=== PATIENT | female | born 1945 | race Caucasian/White ===

== ENCOUNTER 2020-02-13 06:52 | Outpatient (REF) | payer MEDICARE, SELFPAY ==
[2020-02-13 11:08] LABS: MANUAL DIFF FLAG NO
[2020-02-13 11:13] LABS: Basophils Percent Auto 0.6 % (0-2); Eosinophils Absolute Auto 0.1 X10*3/uL (0.0-0.4); Eosinophils Percent Auto 1.8 % (0-4); Hematocrit 41.1 % (37-47); Hemoglobin 13.3 g/dl (12.0-16.0); Imm Gran Abs Auto 0.01 X10*3/uL (0.00-0.03); Imm Gran Pct Auto 0.2 % (0.0-0.4); Lymphocytes Absolute Auto 2.6 X10*3/uL (1.2-4.9); Lymphocytes Percent Auto 42.6 % (20-40); Mean Corpuscular HGB Conc 32.4 g/dl (31.0-35.0); Mean Corpuscular Hemoglobin 31.4 pg (27.0-33.0); Mean Corpuscular Volume 96.9 fL (80-98); Mean Platelet Volume 9.8 fL (9.4-12.3); Monocytes Absolute Auto 0.5 X10*3/uL (0.1-1.2); Monocytes Percent Auto 7.3 % (2-11); Neutrophils Percent Auto 47.5 % (45-73); Platelet Count 358 X10*3/uL (160-400); Red Blood Count 4.24 X10*6/uL (4.20-5.50); Red Cell Distribution Width 13.4 % (11.0-16.0); White Blood Count 6.2 X10*3/uL (4.8-10.8)
[2020-02-13 11:46] LABS: Alanine Aminotransferase 21 U/L (0-31); Albumin Level 4.4 g/dL (3.5-5.0); Alkaline Phosphatase 66 U/L (39-117); Anion Gap 15 (12-20); Aspartate Amino Transferase 20 U/L (5-31); Bilirubin Total 1.4 mg/dL (0.0-1.0); Blood Urea Nitrogen 15 mg/dL (9-16); Calcium 8.9 mg/dL (8.4-10.2); Carbon Dioxide 28 mmol/L (22-29); Chloride 103 mmol/L (96-108); Estimated Glomerular Filt Rate > 60; Glucose Random 84 mg/dL (60-115); Potassium 4.5 mmol/l (3.3-5.1); Sodium 141 mmol/L (135-145); Total Protein 6.9 g/dL (6.5-8.0)
== END 2020-02-13 06:53 | disposition home or self-care (01) ==
LOC: HO.HMGCLDS 06:52
PROVIDERS: PCP Internal Medicine; Visit Provider Internal Medicine
DX: E78.2 Mixed hyperlipidemia (principal); F51.01 Primary insomnia; I10 Essential (primary) hypertension; M54.9 Dorsalgia, unspecified; S29.012A Strain of muscle and tendon of back wall of thorax, initial encounter; X58.XXXA Exposure to other specified factors, initial encounter; Y93.9 Activity, unspecified; Y92.9 Unspecified place or not applicable; Y99.9 Unspecified external cause status
CPT/HCPCS: 36415; 80053; 85025

== ENCOUNTER 2020-08-03 07:06 | Outpatient (REF) | payer MEDICARE, SELFPAY ==
[2020-08-03 11:23] LABS: MANUAL DIFF FLAG NO
[2020-08-03 11:35] LABS: Basophils Percent Auto 0.5 % (0-2); Eosinophils Absolute Auto 0.1 X10*3/uL (0.0-0.4); Eosinophils Percent Auto 1.8 % (0-4); Hematocrit 41.3 % (37-47); Hemoglobin 13.4 g/dl (12.0-16.0); Imm Gran Abs Auto 0.01 X10*3/uL (0.00-0.03); Imm Gran Pct Auto 0.2 % (0.0-0.4); Lymphocytes Absolute Auto 2.3 X10*3/uL (1.2-4.9); Lymphocytes Percent Auto 40.8 % (20-40); Mean Corpuscular HGB Conc 32.4 g/dl (31.0-35.0); Mean Corpuscular Hemoglobin 31.4 pg (27.0-33.0); Mean Corpuscular Volume 96.7 fL (80-98); Mean Platelet Volume 9.5 fL (9.4-12.3); Monocytes Absolute Auto 0.4 X10*3/uL (0.1-1.2); Monocytes Percent Auto 6.6 % (2-11); Neutrophils Absolute Auto 2.8 X10*3/uL (2.0-8.3); Neutrophils Percent Auto 50.1 % (45-73); Platelet Count 376 X10*3/uL (160-400); Red Blood Count 4.27 X10*6/uL (4.20-5.50); Red Cell Distribution Width 13.2 % (11.0-16.0); White Blood Count 5.6 X10*3/uL (4.8-10.8)
[2020-08-03 12:00] LABS: Alanine Aminotransferase 19 U/L (0-31); Albumin Level 4.3 g/dL (3.5-5.0); Alkaline Phosphatase 70 U/L (39-117); Anion Gap 14 (12-20); Aspartate Amino Transferase 16 U/L (5-31); Blood Urea Nitrogen 24 mg/dL (9-16); Carbon Dioxide 29 mmol/L (22-29); Chloride 104 mmol/L (96-108); Cholesterol 185 mg/dL; Estimated Glomerular Filt Rate > 60; Glucose Fasting 88 mg/dL (60-99); HDL Cholesterol 71 mg/dL; LDL Cholesterol Calculated 84 mg/dl; Potassium 4.6 mmol/L (3.3-5.1); Sodium 142 mmol/L (135-145); Total Protein 6.9 g/dL (6.5-8.0); Triglycerides 150 mg/dL
== END 2020-08-03 07:07 | disposition home or self-care (01) ==
LOC: HO.HMGCLDS 07:06
PROVIDERS: PCP Internal Medicine; Visit Provider Internal Medicine
DX: I10 Essential (primary) hypertension (principal); E78.00 Pure hypercholesterolemia, unspecified
CPT/HCPCS: 36415; 80053; 80061; 85025

== ENCOUNTER 2020-08-26 06:48 | Emergency (ER) | payer MEDICARE, SELFPAY ==
--- NOTE | ~2020-08-26 | XR_ITS ---
EXAMINATION: XR KNEE, LEFT CLINICAL INFORMATION: Left knee pain COMPARISON: None TECHNIQUE: Four views of the left knee. FINDINGS: Bones and soft tissues are normal. No fracture or joint effusion. Alignment is anatomic. Joint spaces are well maintained. No abnormal soft tissue calcification. XR/XR knee LT 4V IMPRESSION: Unremarkable left knee.
[2020-08-26 07:18] VITALS: BP 132/62; PULSE 86; RESP 18; TEMP 36.7; O2SAT 98; BMI 25.6
--- NOTE | 2020-08-26 07:28 | ED_ITS ---
HPI - Extremity Problem General Chief complaint: Extremity Problem Stated complaint: leg pain Time Seen by Provider: 08/26/20 07:09 Source: patient Mode of arrival: ambulatory Limitations: no limitations History of Present Illness HPI Narrative: 75 yo female with months of left lower knee pain worse x 2 days unsure if she initially twisted her leg, pain worse with walking, no recent travel, no pain in calf, has not had xrays done yet Complaint: extremity pain Onset (ago): month(s) Pain Consistency: constant Location: left and lower extremity Quality: aching Radiation: none Relieving factors: nothing Exacerbating factors: range of motion, weight bearing and palpation Associated symptoms: denies other symptoms Related Data Previous Rx's Medication Instructions Recorded lidocaine 1 patch TOPICAL DAILY PRN #10 ea 08/26/20 prednisone 40 mg PO DAILY 5 Days #10 tab 08/26/20 Allergies Allergy/AdvReac Type Severity Reaction Status Date / Time No Known Allergies Allergy Verified 08/26/20 07:26 Review of Systems Review of Systems: Constitutional : No Fever, No Chills ENT/Mouth : No Ear Pain, No Hoarseness, No sore throat Eyes: No Eye Pain, No Swelling, No Redness, No Foreign Body Cardiovascular : No Chest Pain, No SOB Respiratory : No Cough, No Dyspnea Gastrointestinal : No Nausea, No Vomiting, No Diarrhea, No abdominal Pain Genitourinary : No Dysuria, No Hematuria Musculoskeletal : positive joint pain, No Myalgias, No Joint Swelling Skin : No Skin lacerations, No rash Neuro : No Weakness, No Numbness, No Loss of Consciousness, No Dizziness, No Headache Psych : No Anxiety/Panic, No Depression [facility] Past Medical History Attestation statement: The following information was validated with the patient. Medical History HLD (hyperlipidemia) HTN (hypertension) Social History Social History Smoking Status: Never smoker Use of substances other than those prescribed or required for medical reasons: No Advance Directives: No Advance Directives Information Provided: No Physical Exam Vital Signs: Vital Signs: Last Vital Signs Temp 98.1 F 08/26/20 07:18 Pulse 86 08/26/20 07:18 Resp 18 08/26/20 07:18 BP 132/62 08/26/20 07:18 Pulse Ox 98 08/26/20 07:18 Body Mass Index 25.6 Appearance: Alert. Oriented X3. No acute distress. Eyes: Pupils equal, round and reactive to light. ENT: Pharynx normal. Neck: Normal inspection. Neck supple. CVS: Normal heart rate and rhythm. Pulses normal. Respiratory: No respiratory distress. Breath sounds normal. Abdomen: Soft and nontender. Skin: Skin warm and dry. Normal skin color. Normal skin turgor. Extremities: No lower extremity edema. No calf ttp L medial knee at pes anserinus location no erythema/mild swelling over area, on warmth, distal NV intact Neuro: Oriented X 3. No motor deficit. No sensory deficit. MDM - Extremity (Nontraumatic) MDM Narrative Medical decision making narrative: 75 yo female with months of left lower knee pain worse x 2 days unsure if she initially twisted her leg, pain worse with walking, no recent travel, no pain in calf, has not had xrays done yet at this time suspect tendonitis vs bursitis at pes anserinus will offer short course oral steroids, knee immobilizer and referral to orthopedics. Discharge Plan Discharge Clinical Impression: Pes anserinus tendinitis Qualifiers: Laterality: left Qualified Code(s): M76.892 - Other specified enthesopathies of left lower limb, excluding foot Patient Disposition: Home, Self-Care Instructions: Tendinitis (ED), Knee Immobilizer (ED) Additional Instructions: return to ED for any worsening symptoms or concerns use immobilizer as needed for pain possible tendonitis vs bursitis Prescriptions: New lidocaine 4 % adhesive patch,medicated 1 patch topical DAILY PRN (Reason: pain) Qty: 10 RF: 0 prednisone 20 mg tablet 40 mg PO DAILY 5 Days Qty: 10 RF: 0 Referrals: Anjel More PA-C [Physician Cartography Professor] - 2 weeks (call for follow up appointment)
== END 2020-08-26 08:32 | disposition home or self-care (01) ==
PROVIDERS: Emergency Provider Emergency Medicine; PCP Internal Medicine
DX: M76.9 Unspecified enthesopathy, lower limb, excluding foot (principal); M25.562 Pain in left knee; I10 Essential (primary) hypertension; E78.5 Hyperlipidemia, unspecified
CPT/HCPCS: 73564; 99283

== ENCOUNTER 2020-09-07 09:45 | Outpatient (REF) | payer MEDICARE, SELFPAY ==
--- NOTE | ~2020-09-07 | XR_ITS ---
EXAMINATION: XR KNEE, LEFT CLINICAL INFORMATION: Pain COMPARISON: 08/26/2020 TECHNIQUE: [place] view only of the left knee. FINDINGS: Single sunrise view of the left knee provided. No patellar fractures identified. There is some some mild spurring without joint space narrowing involving the lateral patella facet. XR/XR knee LT 2V IMPRESSION: Mild degenerative spurring patella lateral facet without significant joint space narrowing.
== END 2020-09-07 09:46 | disposition home or self-care (01) ==
LOC: HO.HOSX 09:45
PROVIDERS: Visit Provider Physician Assistant
DX: M25.562 Pain in left knee (principal); M25.561 Pain in right knee
CPT/HCPCS: 20610; 73560; 99202

== ENCOUNTER 2021-02-09 06:40 | Outpatient (REF) | payer MEDICARE, SELFPAY ==
[2021-02-09 11:29] LABS: MANUAL DIFF FLAG NO
[2021-02-09 11:34] LABS: Basophils Percent Auto 0.3 % (0-2); Eosinophils Absolute Auto 0.1 X10*3/uL (0.0-0.4); Eosinophils Percent Auto 1.7 % (0-4); Hematocrit 43.3 % (37-47); Hemoglobin 13.9 g/dl (12.0-16.0); Imm Gran Abs Auto 0.01 X10*3/uL (0.00-0.03); Imm Gran Pct Auto 0.2 % (0.0-0.4); Lymphocytes Absolute Auto 2.6 X10*3/uL (1.2-4.9); Lymphocytes Percent Auto 44.3 % (20-40); Mean Corpuscular HGB Conc 32.1 g/dl (31.0-35.0); Mean Corpuscular Hemoglobin 30.5 pg (27.0-33.0); Mean Corpuscular Volume 95.2 fL (80-98); Mean Platelet Volume 9.5 fL (9.4-12.3); Monocytes Absolute Auto 0.4 X10*3/uL (0.1-1.2); Monocytes Percent Auto 7.2 % (2-11); Neutrophils Absolute Auto 2.7 X10*3/uL (2.0-8.3); Neutrophils Percent Auto 46.3 % (45-73); Platelet Count 350 X10*3/uL (160-400); Red Blood Count 4.55 X10*6/uL (4.20-5.50); Red Cell Distribution Width 13.1 % (11.0-16.0); White Blood Count 5.8 X10*3/uL (4.8-10.8)
[2021-02-09 12:15] LABS: Alanine Aminotransferase 21 U/L (0-31); Albumin Level 4.2 g/dL (3.5-5.0); Alkaline Phosphatase 79 U/L (39-117); Anion Gap 15 (12-20); Aspartate Amino Transferase 19 U/L (5-31); Blood Urea Nitrogen 15 mg/dL (9-16); Calcium 9.4 mg/dL (8.4-10.2); Carbon Dioxide 27 mmol/L (22-29); Chloride 105 mmol/L (96-108); Cholesterol 201 mg/dL; Estimated Glomerular Filt Rate > 60; Glucose Random 86 mg/dL (60-115); HDL Cholesterol 68 mg/dL; LDL Cholesterol Calculated 99 mg/dl; Potassium 4.8 mmol/L (3.3-5.1); Sodium 142 mmol/L (135-145); Total Protein 6.7 g/dL (6.5-8.0); Triglycerides 174 mg/dL
== END 2021-02-09 06:41 | disposition home or self-care (01) ==
LOC: HO.HMGCLDS 06:40
PROVIDERS: PCP Internal Medicine; Visit Provider Internal Medicine
DX: E78.00 Pure hypercholesterolemia, unspecified (principal); F32.5 Major depressive disorder, single episode, in full remission; I10 Essential (primary) hypertension; K21.9 Gastro-esophageal reflux disease without esophagitis
CPT/HCPCS: 36415; 80053; 80061; 85025

== ENCOUNTER 2021-08-11 06:38 | Outpatient (REF) | payer MEDICARE, SELFPAY ==
[2021-08-11 11:14] LABS: MANUAL DIFF FLAG NO
[2021-08-11 11:35] LABS: Basophils Percent Auto 0.6 % (0-2); Hematocrit 40.7 % (37.0-47.0); Hemoglobin 13.2 g/dl (12.0-16.0); Imm Gran Abs Auto 0.01 X10*3/uL (0.00-0.03); Imm Gran Pct Auto 0.2 % (0.0-0.4); Lymphocytes Absolute Auto 2.5 X10*3/uL (1.2-4.9); Lymphocytes Percent Auto 49.1 % (20-40); Mean Corpuscular HGB Conc 32.4 g/dl (31.0-35.0); Mean Corpuscular Hemoglobin 30.8 pg (27.0-33.0); Mean Corpuscular Volume 95.1 fL (80.0-98.0); Mean Platelet Volume 9.6 fL (9.4-12.3); Monocytes Absolute Auto 0.4 X10*3/uL (0.1-1.2); Neutrophils Absolute Auto 2.2 x10*3/uL (2.0-8.3); Neutrophils Percent Auto 43.1 % (45-73); Platelet Count 327 X10*3/uL (160-400); Red Blood Count 4.28 X10*6/uL (4.20-5.50); Red Cell Distribution Width 13.2 % (11.0-16.0)
[2021-08-11 11:52] LABS: Alanine Aminotransferase 23 U/L (0-31); Albumin Level 3.9 g/dL (3.5-5.0); Alkaline Phosphatase 78 U/L (39-117); Anion Gap 12 (12-20); Aspartate Amino Transferase 19 U/L (5-31); Bilirubin Total 0.6 mg/dL (0.0-1.0); Blood Urea Nitrogen 17 mg/dL (9-16); Calcium 9.4 mg/dL (8.4-10.2); Carbon Dioxide 28 mmol/L (22-29); Chloride 105 mmol/L (96-108); Cholesterol 189 mg/dL; Estimated Glomerular Filt Rate > 60; Glucose Random 98 mg/dL (60-115); HDL Cholesterol 69 mg/dL; LDL Cholesterol Calculated 100 mg/dl; Potassium 4.4 mmol/L (3.3-5.1); Sodium 141 mmol/L (135-145); Total Protein 6.4 g/dL (6.5-8.0); Triglycerides 104 mg/dL
[2021-08-11 12:05] LABS: Thyroid Stimulating Hormone 1.07 uIU/mL (0.32-4.0)
== END 2021-08-11 06:39 | disposition home or self-care (01) ==
LOC: HO.HMGCLDS 06:38
PROVIDERS: Visit Provider Internal Medicine
DX: E78.00 Pure hypercholesterolemia, unspecified (principal)
CPT/HCPCS: 36415; 80053; 80061; 84443; 85025

== ENCOUNTER 2022-01-18 07:53 | Emergency (ER) | payer MEDICARE, SELFPAY ==
--- NOTE | ~2022-01-18 | CT_ITS ---
EXAMINATION: CT ABDOMEN AND PELVIS WITH CONTRAST CLINICAL INFORMATION: Lower abdominal pain. Smaller stools. COMPARISON: CT abdomen pelvis 02/18/2015 TECHNIQUE: Multidetector volumetric images were obtained from the superior aspect of the liver through the pubic symphysis following administration 85 mL of Omnipaque 350 intravenous contrast. Sagittal and coronal reformatted images were obtained on the technologist's workstation. This CT examination was performed using dose optimization techniques as appropriate, variously including the following: *Automated exposure control *Adjustment of mA and/or kV according to patient size (this includes techniques or standardized protocols for targeted exams where dose is matched to indication/reason for exam; i.e. extremities or head) *Use of iterative reconstruction technique DLP: 483 mGy-cm FINDINGS: Visualized lung bases are well aerated. The liver demonstrates normal size, contour and attenuation. The gallbladder is normal in appearance. The pancreas, spleen and adrenal glands are unremarkable. Symmetrically enhancing kidneys. No hydronephrosis of either kidney. A 5 mm hypodense focus within the midpole of the left kidney is too small to accurately characterize. Debris-filled stomach. Normal caliber loops of small and large bowel. Moderate colonic diverticulosis without CT evidence of acute active diverticulitis. Subtle increase in mesenteric haziness within the left central abdomen with a few associated prominent mesenteric lymph nodes. Normal caliber abdominal aorta demonstrating mild atherosclerotic disease. No retroperitoneal lymphadenopathy. Tiny fat-containing umbilical hernia. The bladder is normal in appearance. Unremarkable CT appearance of the uterus. No gross free pelvic fluid. No inguinal lymphadenopathy. Diffuse osteopenia. Mild to moderate degenerative changes of the spine. CT/CT abdomen pelvis w IV con IMPRESSION: -Colonic diverticulosis without CT evidence to suggest active diverticulitis. -Subtle increase in mesenteric haziness within the left central abdomen with a few associated prominent mesenteric lymph nodes. Findings suggest mesenteric panniculitis. Clinical correlation recommended. Fleischner guidelines were followed.
[2022-01-18 07:54] VITALS: BP 132/69; PULSE 110; RESP 17; TEMP 36.6; O2SAT 98; BMI 26.4
[2022-01-18 08:31] VITALS: BP 140/75; PULSE 97; RESP 16; TEMP 36.8; O2SAT 97
--- NOTE | 2022-01-18 08:34 | ED_ITS ---
HPI - Abdominal Pain General Chief Complaint: Abdominal Pain Stated Complaint: abd pain nausea Time Seen by Provider: 01/18/22 08:29 Source: patient Mode of arrival: ambulatory Limitations: no limitations History of Present Illness HPI narrative: 76 yo female with hx of HTN, HLD fam hx of colon cancer s/p colonoscopy 5 years ago and due this year comes in with 2 weeks of lower abdominal cramping and smaller stools. Notes nausea for the past 4 days and some dysuria. No fevers MD elicited complaint: abdominal pain Pertinent past history: none Onset (ago): week(s) (2) Pain Consistency: intermittent Quality: cramping Radiation: RUQ, LLQ and suprapubic Migration to: no migration Exacerbating factors: nothing Relieving factors: nothing Associated symptoms: nausea and dysuria Related Data Home Medications Medication Instructions Recorded Confirmed lisinopril 40 mg tablet 40 mg PO DAILY 09/07/20 melatonin 10 mg capsule 10 mg PO BEDTIME 09/07/20 omeprazole 20 mg capsule,delayed 20 mg PO DAILY 09/07/20 release rosuvastatin 10 mg tablet 10 mg PO BEDTIME 09/07/20 Previous Rx's Medication Instructions Recorded lidocaine 4 % topical patch 1 patch topical DAILY PRN pain #10 08/26/20 ea prednisone 20 mg tablet 40 mg PO DAILY 5 days #10 tabs 08/26/20 prednisone 10 mg tablet 10 mg PO DAILY #40 tabs 01/18/22 Allergies Allergy/AdvReac Type Severity Reaction Status Date / Time No Known Allergies Allergy Verified 09/07/20 09:57 Review of Systems Review of Systems Constitutional : No Weight loss, No Fever, No Chills ENT/Mouth : No sore throat, No Rhinorrhea Eyes: No Swelling, No Redness Cardiovascular : No Chest Pain, No SOB, NoEdema Respiratory : No Cough, No Sputum, No Wheezing Gastrointestinal : Positive Nausea, no Vomiting, no Diarrhea, positive abdominal Pain, No Hematochezia, No Melena Genitourinary : pos Dysuria, No Urinary Frequency, No Hematuria, No Urgency Musculoskeletal : No joint pain, No Myalgias, No Joint Swelling Skin : No Skin Lesions, No rash Neuro : No Weakness, No Numbness, No Dizziness, No Headache Psych : No Anxiety/Panic, No Depression Heme/Lymph: No Bruising, No Lymphadenopathy Endocrine : No Polyuria, No Polydipsia All other systems reviewed and are negative. PMFSH Past Medical History Medical History HLD (hyperlipidemia) HTN (hypertension) Surgical History S/P appendectomy Social History Social History (Updated 01/18/22 @ 09:04 by Brianne Tellez DO) Alcohol intake: never Patient Tobacco Use Status: Former Tobacco user Advance Directives: No Advance Directives Information Provided: Yes Current occupational status: retired Physical Exam ED Vital Signs: Vital Signs - 24 hr 01/18/22 07:54 01/18/22 08:31 Temperature 98 F 98.3 F Pulse Rate 110 H 97 Respiratory Rate 17 16 Blood Pressure 132/69 140/75 H Pulse Oximetry 98 97 Oxygen Delivery Method Room Air BMI result Body Mass Index 26.4 Appearance: Alert. Oriented X3. No acute distress. Eyes: Pupils equal, round and reactive to light. ENT: Pharynx normal. Neck: Normal inspection. Neck supple. CVS: Normal heart rate and rhythm. Pulses normal. Respiratory: No respiratory distress. Breath sounds normal. Abdomen: Soft and mild lower abdominal pain no rebound or guarding Skin: Skin warm and dry. Normal skin color. Normal skin turgor. Extremities: No lower extremity edema. No calf ttp Neuro: Oriented X 3. No motor deficit. No sensory deficit. Course Course Course Narrative: labs and urine normal CT scan meseneteric panniculitis will start on prednisone and DC home with PCP follow up MDM - Abdominal Pain MDM Narrative Medical decision making narrative: 76 yo female with hx of HTN, HLD fam hx of colon cancer s/p colonoscopy 5 years ago and due this year has two weeks of lower abdominal pain now with some nausea and dysuria - at this time will obtain labs, UA, CT scan for renal colic/diverticulitis/mass. Dispo per results and findings. Lab Data Result diagrams: 01/18/22 09:02 01/18/22 09:02 Labs: Lab Results 01/18/22 01/18/22 01/18/22 Range/Units 08:57 09:02 09:02 WBC 6.0 (4.8-10.8) X10*3/uL RBC 4.66 (4.20-5.50) X10*6/uL Hgb 14.2 (12.0-16.0) g/dl Hct 42.8 (37.0-47.0) % MCV 91.8 (80.0-98.0) fL MCH 30.5 (27.0-33.0) pg MCHC 33.2 (31.0-35.0) g/dl RDW 13.3 (11.0-16.0) % Plt Count 365 (160-400) X10*3/uL MPV 8.6 L (9.4-12.3) fL Immature Gran % (Auto) 0.3 (0.0-0.4) % Neut % (Auto) 55.8 (45-73) % Lymph % (Auto) 34.7 (20-40) % [place] % (Auto) 8.7 (2-11) % Eos % (Auto) 0.0 (0-4) % Baso % (Auto) 0.5 (0-2) % Lymph # (Auto) 2.1 (1.2-4.9) X10*3/uL [place] # (Auto) 0.5 (0.1-1.2) X10*3/uL Eos # (Auto) 0.0 (0.0-0.4) X10*3/uL Baso # (Auto) 0.0 (0.0-0.2) X10*3/uL Abs Immat Gran (auto) 0.02 (0.00-0.03) X10*3/uL Absolute Neuts (auto) 3.4 (2.0-8.3) x10*3/uL Absolute Nucleated RBC 0.000 (0.0-0.012) X10*3/uL Nucleated RBC % (auto) 0.0 (0.0-0.2) /100WBC Sodium 144 (135-145) mmol/L Potassium 4.4 (3.3-5.1) mmol/L Chloride 106 (96-108) mmol/L Carbon Dioxide 26 (22-29) mmol/L Anion Gap 16 (12-20) BUN 14 (9-16) mg/dL Creatinine 0.82 (0.5-1.4) mg/dL Estim Creat Clear Calc 51.3 Estimated GFR > 60 Random Glucose 135 H (60-115) mg/dL Calcium 9.7 (8.4-10.2) mg/dL Magnesium 2.1 (1.6-2.6) mg/dL Total Bilirubin 0.8 (0.0-1.0) mg/dL Direct Bilirubin 0.3 (0.0-0.5) mg/dL AST 16 (5-31) U/L ALT 19 (0-31) U/L Alkaline Phosphatase 94 D (39-117) U/L Total Protein 7.1 (6.5-8.0) g/dL Albumin 4.3 (3.5-5.0) g/dL Lipase 17 (8-78) U/L Urine Color Yellow Urine Appearance Clear Urine pH 5.5 (5.0-9.0) Ur Specific [place] 1.015 (1.005-1.025) Urine Protein Negative (Neg-Trace) mg/dL Urine Glucose (UA) Negative (Negative) mg/dL Urine Ketones Negative (Negative) mg/dL Urine Blood Negative (Negative) Urine Nitrite Negative (Negative) Ur Leukocyte Esterase Small (1+) H (Negative) Urine RBC 0-2 (0-2) /HPF Urine WBC 0-5 (0-5) /HPF Ur Squamous Epith Cells 0-2 (0-2) /HPF Urine Bacteria None Seen (None Seen) Hyaline Casts 0-2 (0-2) /LPF Discharge Plan Discharge Clinical Impression: Mesenteric panniculitis Patient Disposition: Home, Self-Care Instructions: Abdominal Pain (ED) Additional Instructions: return to ED for any worsening symptoms or concerns FINDINGS: Visualized lung bases are well aerated. The liver demonstrates normal size, contour and attenuation. The gallbladder is normal in appearance. The pancreas, spleen and adrenal glands are unremarkable. Symmetrically enhancing kidneys. No hydronephrosis of either kidney. A 5 mm hypodense focus within the midpole of the left kidney is too small to accurately characterize. Debris-filled stomach. Normal caliber loops of small and large bowel. Moderate colonic diverticulosis without CT evidence of acute active diverticulitis. Subtle increase in mesenteric haziness within the left central abdomen with a few associated prominent mesenteric lymph nodes. Normal caliber abdominal aorta demonstrating mild atherosclerotic disease. No retroperitoneal lymphadenopathy. Tiny fat-containing umbilical hernia. The bladder is normal in appearance. Unremarkable CT appearance of the uterus. No gross free pelvic fluid. No inguinal lymphadenopathy. Diffuse osteopenia. Mild to moderate degenerative changes of the spine. CT/CT abdomen pelvis w IV con IMPRESSION: -Colonic diverticulosis without CT evidence to suggest active diverticulitis.? -Subtle increase in mesenteric haziness within the left central abdomen with a few associated prominent mesenteric lymph nodes. Findings suggest mesenteric panniculitis. Clinical correlation recommended. ? ? Fleischner guidelines were followed. Prescriptions: New prednisone 10 mg tablet 10 mg PO DAILY Qty: 40 0RF Rx Instructions: 40mg for 4 days, 30mg for 4 days, 20mg for 4 days, 10mg for 4 days. No Action lidocaine 4 % adhesive patch,medicated 1 patch topical DAILY PRN (Reason: pain) Qty: 10 0RF Rx Instructions: may leave on for up to 12 hrs prednisone 20 mg tablet 40 mg PO DAILY 5 Days Qty: 10 0RF lisinopril 40 mg tablet 40 mg PO DAILY rosuvastatin 10 mg tablet 10 mg PO BEDTIME omeprazole 20 mg capsule,delayed release(DR/EC) 20 mg PO DAILY melatonin 10 mg capsule 10 mg PO BEDTIME Referrals: Elly Bai MD [Primary Care Provider] - 1 week
[2022-01-18 09:06] LABS: MANUAL DIFF FLAG NO
[2022-01-18] MEDS: 0.9 % Sodium Chloride 500 ML IV (09:06)
[2022-01-18 09:07] LABS: Basophils Percent Auto 0.5 % (0-2); Hematocrit 42.8 % (37.0-47.0); Hemoglobin 14.2 g/dl (12.0-16.0); Imm Gran Abs Auto 0.02 X10*3/uL (0.00-0.03); Imm Gran Pct Auto 0.3 % (0.0-0.4); Lymphocytes Absolute Auto 2.1 X10*3/uL (1.2-4.9); Lymphocytes Percent Auto 34.7 % (20-40); Mean Corpuscular HGB Conc 33.2 g/dl (31.0-35.0); Mean Corpuscular Hemoglobin 30.5 pg (27.0-33.0); Mean Corpuscular Volume 91.8 fL (80.0-98.0); Mean Platelet Volume 8.6 fL (9.4-12.3); Monocytes Absolute Auto 0.5 X10*3/uL (0.1-1.2); Monocytes Percent Auto 8.7 % (2-11); Neutrophils Absolute Auto 3.4 x10*3/uL (2.0-8.3); Neutrophils Percent Auto 55.8 % (45-73); Platelet Count 365 X10*3/uL (160-400); Red Blood Count 4.66 X10*6/uL (4.20-5.50); Red Cell Distribution Width 13.3 % (11.0-16.0)
[2022-01-18 09:09] LABS: Appearance Urine Clear; Color Urine Yellow; Glucose Urine UA Negative (Negative); Leukocyte Esterase Urine Small (1+) (Negative); Nitrite Urine Negative (Negative); PH 5.5 (5.0-9.0); Specific Gravity - Urine 1.015 (1.005-1.025); UMIC TRIGGER UACC YES; Urine Blood Negative (Negative); Urine Ketones Negative (Negative); Urine Protein Negative (Neg-Trace)
[2022-01-18 09:29] LABS: Alanine Aminotransferase 19 U/L (0-31); Albumin Level 4.3 g/dL (3.5-5.0); Alkaline Phosphatase 94 U/L (39-117); Anion Gap 16 (12-20); Aspartate Amino Transferase 16 U/L (5-31); Bilirubin Direct 0.3 mg/dL (0.0-0.5); Bilirubin Total 0.8 mg/dL (0.0-1.0); Blood Urea Nitrogen 14 mg/dL (9-16); Calcium 9.7 mg/dL (8.4-10.2); Carbon Dioxide 26 mmol/L (22-29); Chloride 106 mmol/L (96-108); Creatinine Clr Calc Pharmacy 51.3; Estimated Glomerular Filt Rate > 60; Glucose Random 135 mg/dL (60-115); Lipase 17 U/L (8-78); Magnesium 2.1 mg/dL (1.6-2.6); Potassium 4.4 mmol/L (3.3-5.1); Sodium 144 mmol/L (135-145); Total Protein 7.1 g/dL (6.5-8.0)
[2022-01-18 09:38] LABS: Bacteria Urine None Seen (None Seen); Hyaline Casts Urine 0-2 /LPF (0-2); RBC Urine 0-2 /HPF (0-2); Squamous Epithelial Cell Urine 0-2 /HPF (0-2); UACC Culture Trigger YES; WBC Urine 0-5 /HPF (0-5)
[2022-01-18] MEDS: iohexoL 350 MG/ML 100 ML INFUS..BTL IV (09:50)
== END 2022-01-18 11:00 | disposition home or self-care (01) ==
PROVIDERS: Emergency Provider Emergency Medicine; PCP Internal Medicine
DX: K65.4 Sclerosing mesenteritis (principal); R10.30 Lower abdominal pain, unspecified; R30.0 Dysuria; Z79.899 Other long term (current) drug therapy; Z87.891 Personal history of nicotine dependence
CPT/HCPCS: 36415; 74177; 80048; 80076; 81001; 83690; 83735; 85025; 87086; 96360; 99284; Q9967

== ENCOUNTER 2022-02-03 07:36 | Outpatient (REF) | payer MEDICARE, SELFPAY | END 2022-02-03 07:37 | disposition home or self-care (01) | LOC: HO.HOSX 07:36 | PROVIDERS: Visit Provider Physician Assistant | DX: Z13.89 Encounter for screening for other disorder (principal) ==

== ENCOUNTER 2022-02-17 06:47 | Outpatient (REF) | payer MEDICARE, SELFPAY ==
[2022-02-17 11:27] LABS: MANUAL DIFF FLAG NO
[2022-02-17 11:45] LABS: Basophils Percent Auto 0.8 % (0-2); Hematocrit 41.5 % (37.0-47.0); Hemoglobin 13.4 g/dl (12.0-16.0); Imm Gran Abs Auto 0.01 X10*3/uL (0.00-0.03); Imm Gran Pct Auto 0.2 % (0.0-0.4); Lymphocytes Absolute Auto 2.1 X10*3/uL (1.2-4.9); Lymphocytes Percent Auto 40.3 % (20-40); Mean Corpuscular HGB Conc 32.3 g/dl (31.0-35.0); Mean Corpuscular Hemoglobin 31.2 pg (27.0-33.0); Mean Corpuscular Volume 96.7 fL (80.0-98.0); Mean Platelet Volume 9.4 fL (9.4-12.3); Monocytes Absolute Auto 0.5 X10*3/uL (0.1-1.2); Monocytes Percent Auto 9.7 % (2-11); Neutrophils Absolute Auto 2.5 x10*3/uL (2.0-8.3); Platelet Count 349 X10*3/uL (160-400); Red Blood Count 4.29 X10*6/uL (4.20-5.50); White Blood Count 5.2 X10*3/uL (4.8-10.8)
[2022-02-17 12:05] LABS: Alanine Aminotransferase 22 U/L (0-31); Albumin Level 4.1 g/dL (3.5-5.0); Alkaline Phosphatase 84 U/L (39-117); Anion Gap 17 (12-20); Aspartate Amino Transferase 17 U/L (5-31); Bilirubin Total 0.9 mg/dL (0.0-1.0); Blood Urea Nitrogen 17 mg/dL (9-16); Calcium 9.6 mg/dL (8.4-10.2); Carbon Dioxide 26 mmol/L (22-29); Chloride 104 mmol/L (96-108); Cholesterol 208 mg/dL; Estimated Glomerular Filt Rate > 60; Glucose Random 87 mg/dL (60-115); HDL Cholesterol 76 mg/dL; LDL Cholesterol Calculated 111 mg/dl; Potassium 4.5 mmol/L (3.3-5.1); Sodium 142 mmol/L (135-145); Total Protein 6.6 g/dL (6.5-8.0); Triglycerides 105 mg/dL
== END 2022-02-17 06:48 | disposition home or self-care (01) ==
LOC: HO.HMGCLDS 06:47
PROVIDERS: PCP Internal Medicine; Visit Provider Internal Medicine
DX: E78.00 Pure hypercholesterolemia, unspecified (principal); I10 Essential (primary) hypertension; K21.9 Gastro-esophageal reflux disease without esophagitis; Z68.26 Body mass index [BMI] 26.0-26.9, adult
CPT/HCPCS: 36415; 80053; 80061; 85025

== ENCOUNTER 2022-08-16 06:33 | Outpatient (REF) | payer MEDICARE, SELFPAY ==
[2022-08-16 12:07] LABS: Alanine Aminotransferase 18 U/L (0-31); Albumin Level 4.2 g/dL (3.5-5.0); Alkaline Phosphatase 80 U/L (39-117); Anion Gap 11 (12-20); Aspartate Amino Transferase 18 U/L (5-31); Bilirubin Total 0.9 mg/dL (0.0-1.0); Blood Urea Nitrogen 15 mg/dL (9-16); Calcium 9.4 mg/dL (8.4-10.2); Carbon Dioxide 30 mmol/L (22-29); Chloride 107 mmol/L (96-108); Estimated Glomerular Filt Rate > 60; Glucose Random 96 mg/dL (60-115); Potassium 4.3 mmol/L (3.3-5.1); Sodium 144 mmol/L (135-145); Total Protein 6.6 g/dL (6.5-8.0)
== END 2022-08-16 06:34 | disposition home or self-care (01) ==
LOC: HO.HMGCLDS 06:33
PROVIDERS: PCP Internal Medicine; Visit Provider Internal Medicine
DX: Z00.00 Encounter for general adult medical examination without abnormal findings (principal); K21.9 Gastro-esophageal reflux disease without esophagitis; I10 Essential (primary) hypertension; E78.00 Pure hypercholesterolemia, unspecified
CPT/HCPCS: 36415; 80053

== ENCOUNTER 2022-10-11 12:00 | Outpatient (REF) | payer MEDICARE, SELFPAY ==
[2022-10-11 13:33] LABS: MANUAL DIFF FLAG NO
[2022-10-11 13:41] LABS: Basophils Percent Auto 0.4 % (0-2); Hematocrit 42.5 % (37.0-47.0); Hemoglobin 13.8 g/dl (12.0-16.0); Imm Gran Abs Auto 0.01 X10*3/uL (0.00-0.03); Imm Gran Pct Auto 0.1 % (0.0-0.4); Mean Corpuscular HGB Conc 32.5 g/dl (31.0-35.0); Mean Corpuscular Hemoglobin 30.9 pg (27.0-33.0); Mean Corpuscular Volume 95.3 fL (80.0-98.0); Mean Platelet Volume 9.6 fL (9.4-12.3); Monocytes Absolute Auto 0.5 X10*3/uL (0.1-1.2); Monocytes Percent Auto 6.7 % (2-11); Neutrophils Absolute Auto 3.3 x10*3/uL (2.0-8.3); Neutrophils Percent Auto 48.8 % (45-73); Platelet Count 366 X10*3/uL (160-400); Red Blood Count 4.46 X10*6/uL (4.20-5.50); Red Cell Distribution Width 13.3 % (11.0-16.0); White Blood Count 6.8 X10*3/uL (4.8-10.8)
== END 2022-10-11 12:01 | disposition home or self-care (01) ==
LOC: HO.10HDL 12:00
PROVIDERS: Visit Provider Internal Medicine
DX: K65.4 Sclerosing mesenteritis (principal); Z80.0 Family history of malignant neoplasm of digestive organs; Z86.010 Personal history of colon polyps
CPT/HCPCS: 36415; 85025

== ENCOUNTER 2023-01-29 14:43 | Outpatient (AMB) | payer MEDICARE, SELFPAY ==
[2023-01-29 15:57] VITALS: BP 122/80; PULSE 82; TEMP 36.7; O2SAT 99; BMI 25.6
--- NOTE | 2023-01-29 15:57 | MHC.OFFWIV ---
Intake Vital Signs 01/29/23 15:57 Height 5 ft 2 in Weight 140 lb BMI 25.6 BP 122/80 Blood Pressure Location Lt brachial Position Sitting Pulse 82 Pulse Source Pulse Oximeter Temp 98.0 F Temp Source Temporal Artery Scan Pulse Oximetry (%) 99 Intake Visit Reasons: EP, UTI? Intake Note: pt is here for c/o possibe uti Patient Tobacco Use Status: Former Tobacco user Allergies No Known Allergies Allergy (Verified 01/29/23 16:19) Medication List - Last Reconciled 01/29/23 by Jerome Costello MD lisinopril 40 mg PO DAILY omeprazole 20 mg PO DAILY rosuvastatin 10 mg PO BEDTIME Do you need a note to return to daycare/school/sports/work: Yes HPI EP, UTI? HPI Details Patient presents for a sick visit. Reports symptoms of increased frequency of urination, burning on urination and discomfort in the suprapubic area. Symptoms started in the past few days. No fevers or chills. No nausea or vomiting. PFSH Medical History HLD (hyperlipidemia) HTN (hypertension) Surgical History S/P appendectomy Social History (Updated 01/18/22 @ 09:04 by Brianne Tellez DO) Alcohol intake: never Patient Tobacco Use Status: Former Tobacco user Current occupational status: retired Physical Exam Vital Signs: Last Vital Signs Temp 98.0 F 01/29/23 15:57 Pulse 82 01/29/23 15:57 BP 122/80 01/29/23 15:57 Pulse Ox 99 01/29/23 15:57 BMI result Body Mass Index 25.6 General: Yes bladder normal to palpation and Yes no CVA tenderness Bimanual exam- vagina & uterus: bladder normal to palpation Back/Spine/Pelvis Back: no CVA tenderness Results AMB Urinalysis, Automated UA Leukoctes 500 [place]ia/uL Last Edit by Wellington Way CMA on 01/29/23 16:10 UA Nitrite Negative Last Edit by [address] Way CMA on 01/29/23 16:10 UA Urobilinogen 0.2 mg/dL Last Edit by Wellington Way CMA on 01/29/23 16:10 UA Protein 0 mg/dL Last Edit by [address] Way, NANCY on 01/29/23 16:10 UA pH 8.[address] Last Edit by [address], NANCY on 01/29/23 16:10 UA Blood 0 Jose/uL Last Edit by [address] Way, NANCY on 01/29/23 16:10 UA Specific [place] 1.[address] Edit by [address], NANCY on 01/29/23 16:10 UA Ketone Negative Last Edit by [address], [facility] on 01/29/23 16:10 UA Bilirubin 0 mg/dL Last Edit by [address], [facility] on 01/29/23 16:10 UA Glucose 0 mg/dL Last Edit by [address], [facility] on 01/29/23 16:10 Results Reviewed Results Reviewed: Laboratory Last Values Urine pH (Auto) 8.0 01/29/23 16:09 Specific [place] (Auto) 1.010 01/29/23 16:09 Urine Protein (Auto) 0 mg/dL 01/29/23 16:09 Glucose (UA)(Auto) 0 mg/dL 01/29/23 16:09 Urine Ketones (Auto) Negative 01/29/23 16:09 Urine Blood (Auto) 0 Jose/uL 01/29/23 16:09 Urine Nitrite (Auto) Negative 01/29/23 16:09 Urine Bilirubin (Auto) 0 mg/dL 01/29/23 16:09 Urine Urobilinogen (Auto) 0.2 mg/dL 01/29/23 16:09 Leukocyte Esterase (Auto) 500 [place]/uL 01/29/23 16:09 Assessment & Plan Assessment & Plan (1) Urinary tract infection: Code(s): N39.0 - Urinary tract infection, site not specified Plan: Take antibiotics and Pyridium as directed. Increase fluid intake. If symptoms of burning persist, new onset of fever or lower back pain, to follow-up at the clinic. Orders: Orders AMB Urinalysis Automated Today Z13.9 - Encounter for screening, unspecified Coding Level of Care Code Est Pt Level 3 (21548) Diagnoses Urinary tract infection N39.0
== END 2023-01-29 16:58 | disposition home or self-care (01) ==
PROVIDERS: PCP Internal Medicine; Visit Provider Internal Medicine
DX: N39.0 Urinary tract infection, site not specified (principal); Z13.9 Encounter for screening, unspecified
CPT/HCPCS: 81003; 99213

== ENCOUNTER 2023-02-14 06:36 | Outpatient (REF) | payer MEDICARE, SELFPAY ==
[2023-02-14 11:34] LABS: MANUAL DIFF FLAG NO
[2023-02-14 11:49] LABS: Basophils Percent Auto 0.6 % (0-2); Eosinophils Percent Auto 0.2 % (0-4); Hematocrit 39.5 % (37.0-47.0); Hemoglobin 13.1 g/dl (12.0-16.0); Imm Gran Abs Auto 0.02 X10*3/uL (0.00-0.03); Imm Gran Pct Auto 0.3 % (0.0-0.4); Lymphocytes Absolute Auto 0.9 X10*3/uL (1.2-4.9); Lymphocytes Percent Auto 14.1 % (20-40); Mean Corpuscular HGB Conc 33.2 g/dl (31.0-35.0); Mean Corpuscular Hemoglobin 31.4 pg (27.0-33.0); Mean Corpuscular Volume 94.7 fL (80.0-98.0); Mean Platelet Volume 9.4 fL (9.4-12.3); Monocytes Absolute Auto 0.4 X10*3/uL (0.1-1.2); Monocytes Percent Auto 6.1 % (2-11); Neutrophils Absolute Auto 5.1 x10*3/uL (2.0-8.3); Neutrophils Percent Auto 78.7 % (45-73); Platelet Count 329 X10*3/uL (160-400); Red Blood Count 4.17 X10*6/uL (4.20-5.50); Red Cell Distribution Width 12.9 % (11.0-16.0); White Blood Count 6.4 X10*3/uL (4.8-10.8)
[2023-02-14 11:56] LABS: Alanine Aminotransferase 19 U/L (0-31); Albumin Level 4.1 g/dL (3.5-5.0); Alkaline Phosphatase 73 U/L (39-117); Anion Gap 12 (12-20); Aspartate Amino Transferase 21 U/L (5-31); Bilirubin Total 0.9 mg/dL (0.0-1.0); Blood Urea Nitrogen 11 mg/dL (9-16); Calcium 9.5 mg/dL (8.4-10.2); Carbon Dioxide 25 mmol/L (22-29); Chloride 104 mmol/L (96-108); Estimated Glomerular Filt Rate > 60; Glucose Random 106 mg/dL (60-115); Potassium 4.2 mmol/L (3.3-5.1); Sodium 137 mmol/L (135-145); Total Protein 6.9 g/dL (6.5-8.0)
[2023-02-14 12:15] LABS: Thyroid Stimulating Hormone 0.32 uIU/mL (0.32-4.0); Vitamin D 25-OH Total 57.2 ng/mL (>30)
[2023-02-14 12:23] LABS: Folate 15.3 ng/mL (> or = 4.0); Vitamin B12 480 pg/mL (200-900)
== END 2023-02-14 06:37 | disposition home or self-care (01) ==
LOC: HO.HMGCLDS 06:36
PROVIDERS: PCP Internal Medicine; Visit Provider Internal Medicine
DX: E78.00 Pure hypercholesterolemia, unspecified (principal); G47.00 Insomnia, unspecified; I10 Essential (primary) hypertension; K21.9 Gastro-esophageal reflux disease without esophagitis; M81.0 Age-related osteoporosis without current pathological fracture
CPT/HCPCS: 36415; 80053; 82306; 82607; 82746; 84443; 85025

== ENCOUNTER 2023-03-13 08:24 | Outpatient (AMB) | payer MEDICARE, SELFPAY ==
[2023-03-13 09:09] VITALS: BP 124/76; PULSE 84; TEMP 36.4; O2SAT 98
--- NOTE | 2023-03-13 09:09 | MHC.OFFWIV ---
Intake Vital Signs 03/13/23 09:09 Height 5 ft 2 in BP 124/76 Blood Pressure Location Rt brachial Position Sitting Pulse 84 Pulse Source Pulse Oximeter Temp 97.6 F Temp Source Temporal Artery Scan Pulse Oximetry (%) 98 Oxygen Delivery Method Room Air Intake Visit Reasons: EP UTI Intake Note: pt is here for c/o possible uti Patient Tobacco Use Status: Former Tobacco user Allergies No Known Allergies Allergy (Verified 03/13/23 09:29) Medication List - Last Reconciled 03/13/23 by Jerome Costello MD lisinopril 40 mg PO DAILY omeprazole 20 mg PO DAILY phenazopyridine (Pyridium) 200 mg PO TID 3 days rosuvastatin 10 mg PO BEDTIME Do you need a note to return to daycare/school/sports/work: Yes HPI EP UTI HPI Details Patient presents for a sick visit. Reports symptoms of increased frequency of urination, burning on urination and discomfort in the suprapubic area. Symptoms started in the past few days. No fevers or chills. No nausea or vomiting. This is the 2nd UTI patient is having in 2 months. She is feeling a constant pressure in the pelvic area. [facility] Medical History HLD (hyperlipidemia) HTN (hypertension) Surgical History S/P appendectomy (Updated 01/18/22 @ 09:04 by Brianne Tellez DO) Alcohol intake: never Patient Tobacco Use Status: Former Tobacco user Current occupational status: retired Physical Exam Vital Signs: Last Vital Signs Temp 97.6 F 03/13/23 09:09 Pulse 84 03/13/23 09:09 BP 124/76 03/13/23 09:09 Pulse Ox 98 03/13/23 09:09 Oxygen Delivery Method Room Air 03/13/23 09:09 General: Yes Bimanual renal exam normal bilaterally, Yes bladder normal to inspection and Yes no CVA tenderness Back/Spine/Pelvis Back: no CVA tenderness Results AMB Urinalysis, Automated UA Leukoctes 500 [place]ia/uL Last Edit by Dorie Lantigua CMA on 03/13/23 09:18 UA Nitrite Negative Last Edit by Dorie Lantigua CMA on 03/13/23 09:18 UA Urobilinogen 0.2 mg/dL Last Edit by Dorie Lantigua CMA on 03/13/23 09:18 UA Protein 0 mg/dL Last Edit by Dorie Lantigua CMA on 03/13/23 09:18 UA pH 6.0 Last Edit by Dorie Lantigua CMA on 03/13/23 09:18 UA Blood 10 Jose/uL Last Edit by Dorie Lantigua CMA on 03/13/23 09:18 UA Specific [place] 1.020 Last Edit by Dorie Lantigua CMA on 03/13/23 09:18 UA Ketone Negative Last Edit by Dorie Lantigua CMA on 03/13/23 09:18 UA Bilirubin 0 mg/dL Last Edit by Dorie Lantigua CMA on 03/13/23 09:18 UA Glucose 0 mg/dL Last Edit by Dorie Lantigua CMA on 03/13/23 09:18 Results Reviewed Results Reviewed: Laboratory Last Values Urine pH (Auto) 6.0 03/13/23 09:17 Specific [place] (Auto) 1.020 03/13/23 09:17 Urine Protein (Auto) 0 mg/dL 03/13/23 09:17 Glucose (UA)(Auto) 0 mg/dL 03/13/23 09:17 Urine Ketones (Auto) Negative 03/13/23 09:17 Urine Blood (Auto) 10 Jose/uL 03/13/23 09:17 Urine Nitrite (Auto) Negative 03/13/23 09:17 Urine Bilirubin (Auto) 0 mg/dL 03/13/23 09:17 Urine Urobilinogen (Auto) 0.2 mg/dL 03/13/23 09:17 Leukocyte Esterase (Auto) 500 [place]/uL 03/13/23 09:17 Assessment & Plan Assessment & Plan (1) Urinary tract infection: Code(s): N39.0 - Urinary tract infection, site not specified Plan: Take antibiotics and Pyridium as directed. Increase fluid intake. If symptoms of burning persist, new onset of fever or lower back pain, to follow-up at the clinic. Patient was strongly advised to see a paper cup handle machine operator to check for uterine prolapse. I requested that she make an appointment with her primary care for this referral. Orders: Orders AMB Urinalysis Automated Today Z13.9 - Encounter for screening, unspecified Coding Level of Care Code Est Pt Level 4 (47762) Diagnoses Urinary tract infection N39.0
== END 2023-03-13 10:15 | disposition home or self-care (01) ==
PROVIDERS: PCP Internal Medicine; Visit Provider Internal Medicine
DX: N39.0 Urinary tract infection, site not specified (principal); R30.9 Painful micturition, unspecified
CPT/HCPCS: 81003; 99214

== ENCOUNTER 2023-03-29 09:53 | Outpatient (REF) | payer MEDICARE, SELFPAY ==
--- NOTE | ~2023-03-29 | US_ITS ---
EXAMINATION: US ABDOMEN COMPLETE CLINICAL INFORMATION: Right upper quadrant pain. COMPARISON: CT abdomen and pelvis 01/18/2022. TECHNIQUE: Real-time imaging of the abdominal viscera. FINDINGS: PANCREAS: Normal. ABDOMINAL AORTA: The proximal, mid, and distal segments are normal in caliber. INFERIOR VENA CAVA: Visualized portions are normal. LIVER: The liver is normal in size. The liver contour is normal. Increased hepatic echogenicity which can be seen in the setting of hepatic steatosis or underlying liver disease. No focal hepatic lesion. There is no intrahepatic biliary duct dilatation seen. GALLBLADDER: Normal. The gallbladder is physiologically distended without evidence of stones, sludge, polyps, wall thickening or pericholecystic fluid. COMMON BILE DUCT: Normal in caliber measuring 0.39 cm in diameter. RIGHT KIDNEY: Normal. No hydronephrosis. No renal calculi or focal parenchymal lesions. The kidney measures 9.1 cm in maximum dimension. LEFT KIDNEY: Normal. No hydronephrosis. No renal calculi or focal parenchymal lesions. The kidney measures 8.6 cm in maximum dimension. SPLEEN: Normal. The spleen measures 7.7 cm in maximum dimension. FREE FLUID: None. US/US abdomen complete IMPRESSION: 1. No cholelithiasis or evidence of acute cholecystitis. 2. Increased hepatic echogenicity which can be seen in the setting of hepatic steatosis or underlying liver disease.
== END 2023-03-29 09:54 | disposition home or self-care (01) ==
LOC: HO.HMGCX 09:53
PROVIDERS: PCP Internal Medicine; Visit Provider Internal Medicine
DX: R10.11 Right upper quadrant pain (principal)
CPT/HCPCS: 76700

== ENCOUNTER 2023-06-11 10:15 | Day surgery (SDC) | payer MEDICARE, SELFPAY ==
--- NOTE | 2023-06-08 10:34 | HO.ANESPROP2 ---
Documented by User: Becky Veras NP 06/08/23 10:34 HPI - Anesthesia Eval Consult details Narrative: 78yo F for Upper Endoscopy and Colonoscopy [facility] Active Problems Active Problems: All Active Problems (Updated 05/09/23 @ 16:14 by Shauna Ruffin) Urinary tract infection (Acute) Acute medial meniscal injury of knee (Acute) Right medial knee pain (Acute) Right anterior knee pain (Acute) Past Medical History Medical History (Updated 05/09/23 @ 16:14 by Shauna Ruffni) HLD (hyperlipidemia) HTN (hypertension) Surgical History Surgical History (Updated 05/09/23 @ 16:14 by Shauna Ruffin) S/P appendectomy Social History Social History (System 05/09/23 @ 16:14 by Shauna Ruffin) Alcohol intake: never Patient Tobacco Use Status: Former Tobacco user Advance Directives: No Advance Directives Information Provided: Yes Current occupational status: retired Meds Allergies Allergy/AdvReac Type Severity Reaction Status Date / Time No Known Allergies Allergy Verified 05/09/23 16:14 Home Medications Medication Instructions Recorded Confirmed Last Taken Type lisinopril 40 mg tablet 40 mg PO DAILY 09/07/20 Unknown History omeprazole 20 mg capsule,delayed 20 mg PO DAILY 09/07/20 Unknown History release rosuvastatin 10 mg tablet 10 mg PO BEDTIME 09/07/20 Unknown History Assessment and Plan Assessment Anesthesia Assessment: Chart Reviewed Documented by User: Ignacio Ruffin MD 06/11/23 10:52 [facility] Past Medical History Medical History (Updated 05/09/23 @ 16:14 by Shauna Ruffin) HLD (hyperlipidemia) HTN (hypertension) Family History Family history of problems with anesthesia: No Surgical History Surgical History (Updated 05/09/23 @ 16:14 by Shauna Ruffin) S/P appendectomy History of Problems with Anesthesia: No Social History Social History (System 05/09/23 @ 16:14 by Shauna Ruffin) Alcohol intake: never Patient Tobacco Use Status: Former Tobacco user Advance Directives: No Advance Directives Information Provided: Yes Current occupational status: retired Meds Allergies Allergy/AdvReac Type Severity Reaction Status Date / Time No Known Allergies Allergy Verified 05/09/23 16:14 Home Medications Medication Instructions Recorded Confirmed Last Taken Type lisinopril 40 mg tablet 40 mg PO DAILY 09/07/20 Unknown History omeprazole 20 mg capsule,delayed 20 mg PO DAILY 09/07/20 Unknown History release rosuvastatin 10 mg tablet 10 mg PO BEDTIME 09/07/20 Unknown History Exam Airway Mallampati Class: III TM Dist: <=3cm Neck ROM: Full Denture: Upper Partial: Lower Heart: rrr Lungs: cta b/l Assessment and Plan Assessment Anesthesia Assessment: Anesthesia Plan Discussed Final Anesthetic Review Family History of Problems with Anesthesia: No History of Problems with Anesthesia: No NPO: Yes ASA Class: II Final Preanesthetic Review: No Changes in Pt Med Stat, Meds/Allgs Chart Reviewed, Consent Obtained/Reviewed and Anes Risks/Benef Reviewed Patient Risk: Intermediate Procedure Risk: Intermediate Anesthetic Plan Anesthetic Plan: MAC: Disposition: Standard PACU
[2023-06-11] MEDS: Lactated Ringers 1,000 ML 100 ML IVCONT (11:03)
[2023-06-11 11:12] VITALS: BP 98/56; PULSE 99; RESP 18; TEMP 36.7; O2SAT 96; BMI 25.6
[2023-06-11 12:10] VITALS: BP 99/45; PULSE 84; RESP 17; TEMP 36.8; O2SAT 100
--- NOTE | 2023-06-11 12:11 | PM.OP ---
Brief Operative Note Date of Service: 06/11/23 Pre-op diagnosis: GERD, Screening Post-op diagnosis: other (Hiatal hernia, R/O Cleaning's, Colon polyps) Procedure: EGD with biopsies, Colonoscopy to the cecum with bx/removal of cecal polyp and hot snare polypectomy at 30cm Surgeon: Myles Gilliland MD Anesthesia: MAC Was an Sales Recruiting Coordinator used for this Procedure?: No Estimated blood loss (mL): 2.0 Pathology: other (A. EG Junction at 34cm B. Cecal polyp C. Polyp at 30cm) Condition: stable Disposition: PACU
[2023-06-11 12:25] VITALS: BP 102/51; PULSE 78; RESP 20; TEMP 36.2; O2SAT 99
--- NOTE | 2023-06-11 14:55 | OP_ITS ---
DATE OF SERVICE: 06/11/2023 SURGEON: Myles Gilliland MD INDICATIONS: Patient presents for evaluation of chronic gastroesophageal reflux, abdominal discomfort, personal history of colon polyps, family history of colorectal cancer, and colorectal cancer screening. Full consent was obtained from her for both procedures, including risks of bleeding and perforation. PREOPERATIVE DIAGNOSIS: POSTOPERATIVE DIAGNOSIS: PROCEDURE PERFORMED: ESTIMATED BLOOD LOSS: COMPLICATIONS: ANESTHESIA: Monitored anesthesia care. ASSISTANTS: SPECIMENS: PREOPERATIVE DIAGNOSES: Gastroesophageal reflux, abdominal pain, personal history of colon polyps, colorectal cancer screening, family history of colon cancer. POSTOPERATIVE DIAGNOSES: Gastroesophageal reflux, abdominal pain, personal history of colon polyps, colorectal cancer screening, family history of colon cancer, hiatal hernia, rule out Cleaning's esophagus, colon polyps, diverticulosis, and internal hemorrhoids. PROCEDURES PERFORMED: Esophagogastroduodenoscopy with biopsies, and colonoscopy to the cecum with biopsy and removal of polyp, and hot snare polypectomy. DESCRIPTION OF PROCEDURE: Patient was placed in the left lateral decubitus position. The Olympus video gastroscope was passed in the posterior oropharynx and upper esophagus under direct vision. The scope was passed slowly into the distal esophagus. The gastroesophageal junction appeared at 34 cm. This area was slightly irregular consistent with probable small, less than 1 cm areas of Cleaning's mucosa, but no evidence of any esophagitis nor any lesions. The scope entered the stomach. There was a moderate-sized hiatal hernia. The scope was advanced to pylorus and the duodenum was cannulated to the descending portion. The duodenum including the bulb appeared normal without mass or ulceration. The scope was withdrawn back in the stomach. The gastric antrum and body appeared normal with good peristalsis. The scope was retroflexed visualizing the proximal stomach carefully, which appeared normal, without any sign of mass or ulceration. The scope was straightened and withdrawn back to the esophagus. Biopsies were obtained at the EG junction at 34 cm. Proximal to this, the esophageal mucosa appeared normal. The scope was withdrawn from the patient. She was turned around for the colonoscopy. The digital rectal exam revealed no abnormalities. The Olympus video pediatric colonoscope was then entered into the rectum and advanced easily to the cecum. Once in the cecum, I did identify cecal pouch with appendiceal orifice and a normal-appearing ileocecal valve. There was transillumination of light deep in the right lower quadrant. The entire cecum was well visualized. There was a 3 mm polyp in the cecum, which was biopsied and completely removed with the cold biopsy forceps. The scope was slowly withdrawn, assessing all mucosal surfaces carefully. Preparation was excellent. At 30 cm, there was an approximately 6 to 8 mm grossly adenomatous polyp, which was removed by hot snare polypectomy recovered by suction. The polypectomy site appeared clean, without any sign of residual polyp nor bleeding. I did not visualize any other polyps, colitis, or angiodysplasia. There was a moderate amount of sigmoid diverticulosis. In the rectum, scope was retroflexed, visualizing internal hemorrhoids, but no other pathology. The rectal mucosa appeared normal. The scope was straightened and withdrawn from the patient. She tolerated both procedures well and was returned to the recovery area in stable condition. IMPRESSION: 1. Hiatal hernia, gastroesophageal reflux, rule out Cleaning's esophagus. 2. Colon polyps. 3. Diverticulosis. 4. Internal hemorrhoids. PLAN: The results of the biopsies will be checked. Given her age and these findings, I do not think she would need any further screening colonoscopies nor followup upper endoscopies even if there is evidence of Cleaning's esophagus on the upper endoscopy biopsies. She was advised to continue her daily omeprazole. She had a recent ultrasound of the abdomen that was negative for gallstones. She was advised not to use any aspirin, NSAIDs, fish oil, nor turmeric for 1 week. She will see me on a p.r.n. basis. MD KHALIDA Galvez/CHRISTOPHER / [phone] MTDParesh
== END 2023-06-11 12:45 | disposition home or self-care (01) ==
PROVIDERS: PCP Internal Medicine; Visit Provider Internal Medicine
PROC: (CPT 45385; principal; 2023-06-11 12:00)
DX: Z12.11 Encounter for screening for malignant neoplasm of colon (principal); Z80.0 Family history of malignant neoplasm of digestive organs; D12.0 Benign neoplasm of cecum; D12.5 Benign neoplasm of sigmoid colon; K57.30 Diverticulosis of large intestine without perforation or abscess without bleeding; K64.8 Other hemorrhoids; K21.9 Gastro-esophageal reflux disease without esophagitis; R10.11 Right upper quadrant pain; K44.9 Diaphragmatic hernia without obstruction or gangrene; I10 Essential (primary) hypertension; E78.00 Pure hypercholesterolemia, unspecified; Z79.899 Other long term (current) drug therapy
CPT/HCPCS: 45385; 45380; 43239; 88305; 88313; J2371; J2704

== ENCOUNTER 2023-08-15 06:09 | Outpatient (REF) | payer MEDICARE, SELFPAY ==
[2023-08-15 11:33] LABS: Alanine Aminotransferase 26 U/L (0-31); Albumin Level 4.1 g/dL (3.5-5.0); Alkaline Phosphatase 64 U/L (39-117); Anion Gap 12 (12-20); Aspartate Amino Transferase 20 U/L (5-31); Bilirubin Total 0.9 mg/dL (0.0-1.0); Blood Urea Nitrogen 14 mg/dL (9-16); Calcium 9.5 mg/dL (8.4-10.2); Carbon Dioxide 26 mmol/L (22-29); Chloride 106 mmol/L (96-108); Cholesterol 170 mg/dL (<200); Estimated Glomerular Filt Rate > 60; Glucose Fasting 93 mg/dL (60-99); HDL Cholesterol 70 mg/dL (>40); LDL Cholesterol Calculated 79 mg/dL (<100); Potassium 4.3 mmol/L (3.3-5.1); Sodium 140 mmol/L (135-145); Total Protein 6.7 g/dL (6.5-8.0); Triglycerides 109 mg/dL (<150)
== END 2023-08-15 06:10 | disposition home or self-care (01) ==
LOC: HO.HMGCLDS 06:09
PROVIDERS: PCP Internal Medicine; Visit Provider Internal Medicine
DX: E78.00 Pure hypercholesterolemia, unspecified (principal); I10 Essential (primary) hypertension; K21.9 Gastro-esophageal reflux disease without esophagitis; Z68.26 Body mass index [BMI] 26.0-26.9, adult
CPT/HCPCS: 36415; 80053; 80061

== ENCOUNTER 2024-02-15 06:53 | Outpatient (REF) | payer MEDICARE, SELFPAY ==
[2024-02-15 10:24] LABS: MANUAL DIFF FLAG NO
[2024-02-15 10:37] LABS: Basophils Percent Auto 0.5 % (0-2); Hematocrit 41.5 % (37.0-47.0); Hemoglobin 13.7 g/dl (12.0-16.0); Imm Gran Abs Auto 0.03 X10*3/uL (0.00-0.03); Imm Gran Pct Auto 0.5 % (0.0-0.4); Lymphocytes Absolute Auto 2.4 X10*3/uL (1.2-4.9); Mean Corpuscular Hemoglobin 30.6 pg (27.0-33.0); Mean Corpuscular Volume 92.8 fL (80.0-98.0); Mean Platelet Volume 9.2 fL (9.4-12.3); Monocytes Absolute Auto 0.4 X10*3/uL (0.1-1.2); Monocytes Percent Auto 7.3 % (2-11); Neutrophils Absolute Auto 2.9 x10*3/uL (2.0-8.3); Neutrophils Percent Auto 49.7 % (45-73); Platelet Count 362 X10*3/uL (160-400); Red Blood Count 4.47 X10*6/uL (4.20-5.50); Red Cell Distribution Width 13.3 % (11.0-16.0); White Blood Count 5.8 X10*3/uL (4.8-10.8)
[2024-02-15 11:10] LABS: Alanine Aminotransferase 24 U/L (0-31); Albumin Level 4.2 g/dL (3.5-5.0); Alkaline Phosphatase 66 U/L (39-117); Anion Gap 14 (12-20); Aspartate Amino Transferase 25 U/L (5-31); Bilirubin Total 1.1 mg/dL (0.0-1.0); Blood Urea Nitrogen 16 mg/dL (9-16); Calcium 9.9 mg/dL (8.4-10.2); Carbon Dioxide 25 mmol/L (22-29); Chloride 106 mmol/L (96-108); Estimated Glomerular Filt Rate > 60; Glucose Random 97 mg/dL (60-115); Potassium 4.5 mmol/L (3.3-5.1); Sodium 140 mmol/L (135-145)
[2024-02-15 11:18] LABS: Thyroid Stimulating Hormone 0.77 uIU/mL (0.32-4.0); Vitamin D 25-OH Total 70.8 ng/mL (>30)
== END 2024-02-15 06:54 | disposition home or self-care (01) ==
LOC: HO.HMGCLDS 06:53
PROVIDERS: PCP Internal Medicine; Visit Provider Internal Medicine
DX: E78.00 Pure hypercholesterolemia, unspecified (principal); I10 Essential (primary) hypertension; K59.00 Constipation, unspecified; R10.9 Unspecified abdominal pain
CPT/HCPCS: 36415; 80053; 82306; 84443; 85025

== ENCOUNTER 2024-08-16 06:32 | Outpatient (REF) | payer MEDICARE, SELFPAY ==
--- OUTSIDE RECORDS SUMMARY | 2024-08-16 06:35 | XMS_ITS ---
Author Organization [facility] Address [address] [place] [id number] Care Team Providers Care Trail Construction Worker Name Role Phone Elly Bai Primary Care Provider Unavailab Myles Urban Unavailable [phone] REASON FOR VISIT gerd,screening,fam hx colon ca Problems Problem Type SNOMED Code ICD Code Onset Dates Problem Status W/U Status Risk Notes Problem Diverticular disease of colon (682858395) Diverticulosis of large intestine without perforation or abscess without bleeding (K57.30) Active confirmed Problem Gastroesophageal reflux disease (K21.9) Active confirmed Encounters Encounter Location Date Provider Diagnosis [facility] [address] [place] [phone] 06/11/2023 Myles Gilliland Encounter for screen ing colonoscopy Z12.11 ; Colon polyp K63.5 ; Diverticulosis of large intestine without perforation or abscess without bleeding K57.30 ; Other hemorrhoids K64.8 ; Other specified disease of esophagus K22.89 ; Hiatal hernia K44.9 ; Gastroesophageal reflux disease K21.9 and Abdominal pain R10.9 Assessments Encounter Date Diagnosis (ICD Code) Assessment Notes Treatment Notes Treatment Clinical Notes Section Notes 06/11/2023 Encounter for screening colonoscopy (ICD-10 - Z12.11) 06/11/2023 Colon polyp (ICD-10 - K63.5) 06/11/2023 Diverticulosis of large intestine without perforation or abscess without bleeding (ICD-10 - K57.30) 06/11/2023 Other hemorrhoids (ICD-10 - K64.8) 06/11/2023 Other specified disease of esophagus (ICD-10 - K22.89) 06/11/2023 Hiatal hernia (ICD-10 - K44.9) 06/11/2023 Gastroesophageal reflux disease (ICD-10 - K21.9) 06/11/2023 Abdominal pain (ICD-10 - R10.9) Plan Of Treatment No Information Progress Notes * SHYAM ARNOLDDOB:[birth year] (79 yo F)Acc No.[id number]:06/11/2023 EGD and COL/MAC Patient:?SHYAM ARNOLD Provider:?Myles Gilliland MD :1945???Age:78 Y???Sex:Female D ate:06/11/2023 Address:[address] [place] [address] , [id number] Pcp:Elly Bai Subjective: * Chief Complaints: * ???1. Gerd,screening,fam hx colon ca. * Medical History:? Objective: * Vitals:? Assessment: * Assessment: 1.?Encounter for screening c olonoscopy - Z12.11 (Primary)???2.?Colon polyp - K63.5???3.?Diverticulosis of large intestine without perforation or abscess without bleeding - K57.30???4.?Other hemorrhoids - K64.8???5.?Other specified disease of esophagus - K22.89???6.?Hiatal hernia - K44.9???7.?Gastroesophageal reflux disease - K21.9???8.?Abdominal pain - R10.9??? Plan: * Treatment: * Procedure Codes:?49522 LESIO N REMOVAL COLONOSCOPY, Modifiers: 33 , 26201 COLONOSCOPY AND BIOPSY, Modifiers: 59 , 33, 04105 UPPER GI ENDOSCOPY, BIOPSY * * The named appointment provid er may or may not be the originator of this progress note, and it is not deemed complete until electronically signed by the appointment provider. Sign off status: Pending * Provider:?Myles Gilliland MD Date:? 024 Generated for Devante polanco/Ledy/eTransmitting on:?08/16/2024 06:34 AM EDT
--- OUTSIDE RECORDS SUMMARY | 2024-08-16 06:35 | XMS_ITS | Patient Health Record ---
Author Organization [facility] Address [address] [place] [address] Care Team Providers Care French Lecturer Name Role Phone Elly Bai Primary Care Provider Myles Hansen Unavailable [phone] Allergies Allergen (clinical drug ingredient) Drug/Non Drug Allergy documented on EMR Reaction Allergy Type Onset Date Status sulfamethoxazole / trimethoprim Bactrim Unknown Drug Allergy Active Reason For Referral No Information Medications Medication SIG (Take, Route, Frequency, Duration) Notes Start Date End Date Status [place] 3 Active Flax Seeds Active Rosuvastatin Calcium 10 MG Oral for 90 Active Omeprazole 20 MG Oral for 90 A ctive Turmeric Active Lisinopril 40 MG Oral for 90 A ctive Magnesium Active Multivitamin Active Social History Tobacco Use: Social History Observation Description Date Details (start date - stop date) Never Smoker NA - NA Tobacco Use/Smoking Question Answer Notes Patient is a nonsmoker Alcohol Screen Question Answer Notes Did you have a drink contain ing alcohol in the past year? Yes How often did you have a dri nk containing alcohol in the past year? Never (0 point) How many drinks did you have on a typical day when you were drinking in the past year? 1 or 2 drinks (0 point) How often did you have 6 or more drinks on one occasion in the past year? Never (0 point) Points 0 Interpretation Negative Problems Problem Type SNOMED Code ICD Code Onset Dates Problem Status W/U Status Risk Notes Problem 735079375 Colon cancer screening (Z12.11) Active confirmed Problem Diverticular disease of colon (405699294) Diverticulosis of large intestine without perforation or abscess without bleeding (K57.30) Active confirmed Problem Gastroesophageal reflux disease (K21.9) Active confirmed Problem 622589650 Family history o f colon cancer (Z80.0) Active confirmed Problem 583624527 RUQ pain (R10.11) Active confirmed Problem 900953752 Gastroesophageal reflux disease, unspecified whether esophagitis present (K21.9) Active confirmed Plan Of Treatment Pending Test Test Name Order Date Pathology 06/11/2023 Future Test Test Name Order Date UPPER GI ENDOSCOPY 03/22/2023 COLONOSCOPY 03/22/2023 Insurance Providers Payer Name Payer Address Payer Phone Subscriber Number Group Number Insured Name Patient Relationship to Insured Coverage Start Date Coverage End Date [facility] [address] [place] [address] [phone] [id number] SHYAM ARNOLD Self - patient is the insured Medical (General) History Medical History History ICD Code hypertension hypercholesterolemia GERD--she describes an upper endoscopy in approximately 2018 and being told of a hiatal hernia 3 Previous colonoscopies in [place] with removal of polyps, but she reports that they were not even precancerous. Her most recent colonoscopy was in approximately [address] Rubalcava. Denies [place],DM,CVA,Lung disease,renal dise ase Surgical History Surgery Date(Month/Year) Appendectomy age 11 Anal fissure
[2024-08-16 12:49] LABS: Alanine Aminotransferase 25 U/L (0-31); Anion Gap 12 (12-20); Aspartate Amino Transferase 27 U/L (5-31); Blood Urea Nitrogen 18 mg/dL (9-16); Calcium 9.3 mg/dL (8.4-10.2); Carbon Dioxide 27 mmol/L (22-29); Chloride 107 mmol/L (96-108); Estimated Glomerular Filt Rate > 60; Glucose Random 87 mg/dL (60-115); Potassium 4.2 mmol/L (3.3-5.1); Sodium 142 mmol/L (135-145); Total Protein 6.8 g/dL (6.5-8.0)
[2024-08-16 13:12] LABS: Alkaline Phosphatase 62 U/L (39-117)
== END 2024-08-16 06:33 | disposition home or self-care (01) ==
LOC: HO.HMGCLDS 06:32
PROVIDERS: PCP Internal Medicine; Visit Provider Internal Medicine
DX: E78.00 Pure hypercholesterolemia, unspecified (principal); F41.8 Other specified anxiety disorders; I10 Essential (primary) hypertension; K29.60 Other gastritis without bleeding; K63.5 Polyp of colon
CPT/HCPCS: 36415; 80053

== ENCOUNTER 2024-11-07 06:24 | Emergency (ER) | payer MEDICARE, SELFPAY ==
--- NOTE | ~2024-11-07 | XR_ITS ---
EXAMINATION: XR HIP, RIGHT CLINICAL INFORMATION: pain x1mo, atraumatic COMPARISON: None available. TECHNIQUE: AP pelvis, and 2 views of the right hip. FINDINGS: No fracture, dislocation, or suspicious bone lesion. Hip joint spaces are preserved bilaterally. No significant arthrosis. Femoral heads are normal in contour without evidence of AVN. Mild posterior acetabular over-coverage in both hips, nonspecific finding which can be associated with pincer-type HOMERO. Minimal enthesopathic spurring of the greater trochanters. Minimal degenerative change in both SI joints. The sacrum is intact. Mild degenerative spondylosis of the lower lumbar spine. There is no soft tissue abnormality. XR/XR hip RT w PEL1V IMPRESSION: 1. No acute findings of the right hip. Electronically signed by: Grant Pardo MD 11/07/2024 09:17 AM EDT
[2024-11-07 06:31] VITALS: BP 125/53; PULSE 88; RESP 20; TEMP 36.7; O2SAT 97; BMI 25.4
--- NOTE | 2024-11-07 08:25 | ED.EXTPRO ---
HPI - Extremity Problem General Chief complaint: Extremity Problem Stated complaint: right leg pain Time Seen by Provider: 11/07/24 08:01 Source: patient Mode of arrival: ambulatory Limitations: no limitations History of Present Illness ED Provider: Keyona Baez NP HPI Narrative: Patient is a 79-year-old female who presents emergency department for evaluation. She reports over the past 1-2 months she has been experiencing intermittent pain to the ?right leg? what is particularly localized to the right posterior buttock. She reports that it is exacerbated while standing. She admits that 1-2 months ago she sat down autoimmune and thought that she may have scratched herself with a screw that was there, but when her has been evaluated the area he did not notice any, puncture, or abrasion. There has been no rashes or lesions to the area. She has tried ibuprofen a few times without any change. She spoke to her primary care doctor about this and told it was possibly bursitis. She denies any right lower extremity redness pain or swelling, no closing sensation to the foot. She denies associated back pain with this. To the wrist genitourinary symptoms. No paresthesias to the extremity or saddle paresthesias. Related Data Home Medications ?Medication ?Instructions ?Recorded ?Confirmed lisinopril 40 mg tablet 40 mg PO DAILY 09/07/20 06/11/23 omeprazole 20 mg capsule,delayed 20 mg PO DAILY 09/07/20 06/11/23 release rosuvastatin 10 mg tablet 10 mg PO BEDTIME 09/07/20 06/11/23 Previous Rx's ?Medication ?Instructions ?Recorded lidocaine 5 % topical patch 1 patch topical DAILY #15 ea 11/07/24 (Lidoderm) Allergies Allergy/AdvReac Type Severity Reaction Status Date / Time sulfamethoxazole (From Allergy Unknown Verified 11/07/24 06:58 Bactrim) trimethoprim (From Bactrim) Allergy Unknown Verified 11/07/24 06:58 Review of Systems Review of Systems: Yes all other systems are reviewed and are negative PMFSH Past Medical History Attestation statement: The following information was validated with the patient. Source: old records reviewed Medical History HLD (hyperlipidemia) HTN (hypertension) Surgical History S/P appendectomy Social History Social History (System 05/09/23 @ 16:14 by Shauna Ruffin) Alcohol intake: never Patient Tobacco Use Status: Former Tobacco user Advance Directives: No Advance Directives Information Provided: Yes Current occupational status: retired Physical Exam Exam: Exam: Appearance: Alert.?Oriented to person, place and time. No acute distress.?Normal affect. CVS: Heart sounds normal. Normal heart rate and rhythm.? Pulses normal.?? Respiratory: No respiratory distress.? Lung sounds clear to auscultation bilaterally?? Abdomen: Soft and non-tender. Normoactive bowel sounds. Skin: Skin warm and dry.? Normal skin color.? No rashes or lesions. Extremities: No lower extremity edema.? No calf ttp. 2+ DP/PT pulse. Full range of motion to the right lower extremity including the hip joint. Back: No midline lumbar spine tenderness, step-offs, deformities. No lumbar paraspinal muscle tenderness. Straight leg test negative on the right. ? Neuro: Moves all extremities spontaneously. Sensation intact bilaterally. Ambulates with normal steady gait. Vital Signs: Vital Signs: Last Vital Signs Temp 97.7 F 11/07/24 09:23 Pulse 61 11/07/24 09:23 Resp 16 11/07/24 09:23 BP 130/57 L 11/07/24 09:23 Pulse Ox 96 11/07/24 09:23 O2 Del Method Room Air 11/07/24 09:23 BMI result Body Mass Index 25.4 Medications Administered Discontinued Medications Generic Name Dose Route Start Last Admin Trade Name Freq PRN Reason Stop Dose Admin Lidocaine 1 patch 11/07/24 08:40 11/07/24 09:23 Lidocaine 4 % Patch Adh..Patch TRANSDERMA 11/07/24 08:41 1 patch ONCE ONE Administration Protocol Medical Decision Making Medical Decision Making MDM Narrative: Patient is a 79-year-old female with past medical history of hypertension, hyperlipidemia who presents emergency department for evaluation of pain to the right leg localized to the posterior buttock over the past 1-2 months, intermittent in nature worse while standing as per HPI. Has tried occasional NSAID use without any improvement. Concern for degenerative arthritis, radiculopathy, and bursitis. Wells score low risk lower suspicion for DVT. No rashes or lesions to suggest herpes zoster. Extremity is neurovascularly intact distally, not consistent bacterial occlusion. Obtained XR right hip and pelvis without evidence of acute fracture dislocation, degenerative changes of the SI joint as well as lumbar spondylosis. Reviewed additional conservative treatment at home and outpatient follow-up with primary care doctor. All questions answered. Stable for discharge. Steady gait Differential Diagnosis Differential Diagnoses: The differential diagnosis associated with the presentation includes (See narrative above) Independent Interpretation I performed an independent interpretation of an: Plain X-Ray (See narrative above) Radiology Impression Discussion of test interpretation with radiology: I have reviewed the radiologist's reading. Radiologist Impression: XR/XR hip RT w PEL1V IMPRESSION: 1. No acute findings of the right hip. External Record Review External record reviewed: Outpatient record Chronic Conditions Patient?s care impacted by: Other (See narrative above) Discharge Plan Discharge Clinical Impression: Hip pain Qualifiers: Laterality: right Qualified Code(s): M25.551 - Pain in right hip Patient Disposition: Home, Self-Care Instructions: Hip Pain (ED) Additional Instructions: X-ray today revealed mild arthritic changes in the lower back which may be contributing to the pain that you are experiencing in the lower buttock on the right side such as with sciatica. Please speak with your primary care doctor as they may consider a course of physical therapy for further evaluation. May utilize Lidoderm patch leave the area of most pain for 12 hours and remove for 12 hours to prevent any skin irritation. You may return back to emergency department any new or worsening symptoms or concerns. Prescriptions: New lidocaine [Lidoderm] 5 % adhesive patch,medicated 1 patch topical DAILY Qty: 15 0RF Rx Instructions: leave on most painful area for up to 12 hrs No Action lisinopril 40 mg tablet 40 mg PO DAILY rosuvastatin 10 mg tablet 10 mg PO BEDTIME omeprazole 20 mg capsule,delayed release(DR/EC) 20 mg PO DAILY Referrals: Elly Bai MD [Primary Care Provider, Internal Medicine] Print Language: Georgian
[2024-11-07 09:23] VITALS: BP 130/57; PULSE 61; RESP 16; TEMP 36.5; O2SAT 96
[2024-11-07] MEDS: Lidocaine 4 % Patch ADH..PATCH 1 PATCH TRANSDERMA (09:23)
--- NOTE | 2024-11-07 09:27 | PC.NURSE ---
patient continues to ambulate independently with steady gait, no distress noted. awaiting dispo
[2024-11-07 10:58] VITALS: BP 130/57; PULSE 61; RESP 16; TEMP 36.5; O2SAT 96
== END 2024-11-07 11:03 | disposition home or self-care (01) ==
PROVIDERS: Emergency Provider Emergency Medicine Emergency Medical Services; PCP Internal Medicine
DX: M25.551 Pain in right hip (principal); M79.604 Pain in right leg; I10 Essential (primary) hypertension; E78.5 Hyperlipidemia, unspecified; Z79.899 Other long term (current) drug therapy
CPT/HCPCS: 73502; 99283; 99284

== ENCOUNTER → 2024-11-07 08:35 | Outpatient (BNV) | payer MEDICARE, SELFPAY | PROVIDERS: Emergency Provider Emergency Medicine Emergency Medical Services; PCP Internal Medicine; Visit Provider Radiology Diagnostic Radiology | DX: M25.551 Pain in right hip (principal) | CPT/HCPCS: 73502 ==

== ENCOUNTER 2025-02-16 06:53 | Outpatient (REF) | payer MEDICARE, SELFPAY ==
--- OUTSIDE RECORDS SUMMARY | 2025-02-16 06:56 | XMS_ITS | Clinical Summary ---
Author Organization [facility] Address [address] [place] [address] [place] [phone] Phone Care Team Providers Care Belt Polisher Name Role Phone Elly Bai MD Primary Care Provider Allergies Active Allergy Reactions Criticality Noted Date Comments Sulfamethoxazole-Trimethoprim Rash Low 2022 Social History Tobacco Use Types Packs/Day Years Used Date Smoking Tobacco: Never Assessed Education Answer Date Recorded Are you interested in more education? Not on galindo e 03/18/2023 Are you concerned about learning? Not on file 03/18/2023 No 03/18/2023 No 03/18/2023 Digital Access Answer Date Recorded No 03/18/2023 No 03/18/2023 Reliable internet access at home? Not on file 03/18/2023 Device with a working camera? Not on file Intimate Partner Violence Answer Date R ecorded Are you denied basic needs s uch as food, clothing, or medical care? No 03/18/2023 In the past 12 months have y ou been in a relationship with a person who hurts, threatens, or tries to control you? No 03/18/2023 Are you denied basic needs s uch as food, clothing, or medical care? No 03/18/2023 In the past 12 months have y ou been in a relationship with a person who hurts, threatens, or tries to control you? No 03/18/2023 Comments Unknown Sex and Gender Information Value Date Recorded Sex Assigned at Not on file Legal Sex Female 5:24 PM EST Gender Identity Not on file Sexual Orientation Not on file Last Filed Vital Signs Vital Sign Reading Time Taken Comments Blood Pressure 105/66 03/18/2023 8:07 PM EST Pulse 86 03/18/2023 8:07 PM EST Temperature 36.4 C (97.6 F) 03/18/2023 8:07 PM EST Respiratory Rate 18 03/18/2023 8:07 PM EST Oxygen Saturation 97% 03/18/2023 8:07 PM EST Inhaled Oxygen Concentration - - Weight 64.4 kg (142 lb) 03/18/2023 5:28 PM EST Height 160 cm (5' 3 ) 03/18/2023 5:28 PM EST Body Mass Index 25.15 03/18/2023 5:28 PM EST Plan of Treatment Health Maintenance Due Date Last Done Comments Adult Td,Tdap Booster 1947 LIPID PANEL 1947 DEPRESSION SCREENING 1959 SMOKING Hx and SMOKELESS TOB ACCO SCREENING 1960 HEPATITIS C SCREENING 1965 PNEUMOCOCCAL VACCINES (50+ y ears) (1 of 1 - PCV) 1997 ZOSTER VACCINES (1 of 2) 1997 OSTEOPOROSIS SCREENING INITI AL (ONE-TIME) 2012 RSV VACCINE (1 - 1-dose 75+ series) 2022 INFLUENZA VACCINE (#1) 2024 COVID-19 VACCINE (1 - 2024-2 6 season) 2024 HEPATITIS A VACCINES Aged Out No long er eligible based on patient's age to complete this topic HIB VACCINES Aged Out No longer eligi ble based on patient's age to complete this topic MENINGOCOCCAL VACCINES (ACWY) Aged Out No longer eligible based on patient's age to complete this topic MENINGOCOCCAL VACCINES (B) Aged Out N o longer eligible based on patient's age to complete this topic Medical Devices Not on file Insurance [employer] RE[employer] Care Teams Belt Polisher Relationship Specialty Start Date End Date Elly Bai MD [address] [place] [address] [place] [address] PCP - General 03/18/23 Additional Source Comments The information contained in this document represents components of the legal health record. It is not the complete legal health record.[facility]
--- OUTSIDE RECORDS SUMMARY | 2025-02-16 06:56 | XMS_ITS | Clinical Summary ---
Author Organization [address] Address [address] [place] [address] Phone Care Team Providers Care [employer] Teacher Name Role Phone Elly Bai MD Primary Care Provider Surgical History Surgery Date Site/Laterality Comments APPENDECTOMY PROCEDURE: HISTORICAL APPENDECTOMY TUBAL LIGATION PROCEDURE: HISTORICAL TUBAL LIGATION OTHER SURGICAL HISTORY PROCEDURE: [place] UNLISTED PROCEDURE RECTUM; COMMENT: fissure repair BREAST BIOPSY 1999 Right PROCEDURE: BX BREAST; PERC NEEDLE CORE W/IMAG GUID; COMMENT: cyst asp Medical History Medical History Date Comments Essential hypertension, benign D X:Essential hypertension, benign Hyperlipidemia DX:Hyperlipidemi a Family History Medical History Relation Name Comments Breast cancer Aunt m 70s Colon cancer Brother two brothers Colon cancer Mother Breast cancer Other m aunt 70s Relation Name Status Comments Aunt m 70s Alive Brother Mother Other m aunt 70s Alive Social History Tobacco Use Types Packs/Day Years Used Date Smoking Tobacco: Never Smokeless Tobacco: Never Alcohol Use Standard Drinks/Week Comments Yes 0 (1 standard drink = 0.6 oz pur e alcohol) Comments Unknown Sex and Gender Information Value Date Recorded Sex Assigned at Not on file Legal Sex Female 11:27 AM EST Gender Identity Not on file Sexual Orientation Not on file Obstetrics History Para Term AB IAB SAB Ectopic Multiple Livin g Live Births 3 3 3 3 Date Outcome GA Total Labor Labor/2nd/3rd Weight Sex Type Anes PTL Michelle A1 A5 Name Clin Term Term Term Plan of Treatment Health Maintenance Due Date Last Done Comments Cholesterol Screening (Lipid Panel) 03/25/2022 Falls Risk Assessment 03/25/2022 Hepatitis C Screening 03/25/2022 Medicare Annual Wellness Visit 03/25/2022 Osteoporosis Screening (Bone Density Screening) 03/25/2022 Social Influencers of Health Screening 03/25/2022 Hypertension/CHF/CAD Annual BMP Blood Test 04/01/2022 Depression Screening 04/16/2024 COVID-19 Vaccine ( season) 2024 02/19/2024, 02/13/2023, 01/06/2022, Additional history exists Influenza Vaccine (#1) 2024 , 02/13/2023, 12/29/2021, Additional history exists DTaP,Tdap,and Td Vaccines (2 - Td or Tdap) 03/14/2027 03/14/2017 Pneumococcal Vaccine: 50+ Years Completed 12/29/2021, 02/20/2019, 02/15/2018 Zoster Vaccines Completed 02/22/2022, 03/21/2021 RSV Immunization Adult Patients Completed 02/21/2023 Breast Cancer Screening Discontinued 04/29/19, 04/23/2023, 04/20/2022, Additional history exists HIB Vaccines Aged Out No longer eligi ble based on patient's age to complete this topic HPV Vaccines Aged Out No longer eligi ble based on patient's age to complete this topic Hepatitis A Vaccines Aged Out No long er eligible based on patient's age to complete this topic Hepatitis B Vaccines Aged Out No long er eligible based on patient's age to complete this topic IPV Vaccines Aged Out No longer eligi ble based on patient's age to complete this topic MMR Vaccines Aged Out No longer eligi ble based on patient's age to complete this topic Meningococcal ACWY Vaccine Aged Out N o longer eligible based on patient's age to complete this topic Meningococcal B Vaccine Aged Out No l onger eligible based on patient's age to complete this topic RSV Immunization Patients Under 20 months Aged Out No longer eligible based on patient's age to complete this topic Varicella Vaccines Aged Out No longer eligible based on patient's age to complete this topic Procedures Procedure Name Priority Date/Time Associated Diagnosis Comments MG MAMMO DIGITAL SCREENING W CONRADO BILAT Routine 04/29/2024 8:00 AM EST Encounter for screening mammogram for breast cancer from Last 3 Months or Most Recently Relevant to Health Maintenance Results * MG Mammo Digital Screening w Conrado bilat (04/29/2024 8:00 AM EST) Anatomical Region Laterality Modality Breast Bilateral Mammography 04/29/2024 12:1 2 PM EST Impressions 04/29/2024 12:16 PM EST Benign. BI-RADS CATEGORY: 1 - NEGATIVE RECOMMENDATION: Screening bilateral mammogram is recommended in 1 year. Mammo Location: [facility], [address] [place] [address], [id number], . Minimal -------- FINAL REPORT -------- Dictated By: Jacklyn Weldon Dictated Date: 04/29/2024 12:12 ET Assigned Physician: Jacklyn Weldon Reviewed and Electronically Signed By: Jacklyn Weldon Signed Date: 04/29/2024 12:16 ET Workstation ID: [id number] Transcribed By: Self Edit Transcribed Date: 04/29/2024 12:12 ET Narrative 04/29/2024 12:16 PM EST CLINICAL: 79 years old, Female, routine annual exam. COMPARISON: Mammograms dating back to 03/31/2020 with most recent of 05/03/2023. TECHNIQUE: Bilateral MLO and CC views were obtained digitally with 3-D mammogram (digital breast tomosynthesis). Computer-aided detection was utilized in evaluation of this exam (CAD). FINDINGS: There is no evidence of suspicious mass or architectural distortion. No worrisome calcifications are evident. There has been no significant change from prior exam(s). BREAST DENSITY: B - There are scattered areas of fibroglandular density. Procedure Note Jacklyn Weldon MD - 04/29/2024 CLINICAL: 79 years old, Female, routine annual exam. COMPARISON: Mammograms dating back to 03/31/2020 with most recent of05/03/2023. TECHNIQUE: Bilateral MLO and CC views were obtained digitally with 3-Dmammogram (digital breast tomosynthesis). Computer-aided detection wasutilized in evaluation of this exam (CAD). FINDINGS: There is no evidence of suspicious mass or architectural distortion. Noworrisome calcifications are evident. There has been no significantchange from prior exam(s). BREAST DENSITY: B - There are scattered areas of fibroglandular density. IMPRESSION: Benign. BI-RADS CATEGORY: 1 - NEGATIVE RECOMMENDATION: Screening bilateral mammogram is recommended in 1 year. Mammo Location: [facility], [address] [place] [address], [id number], . Minimal -------- FINAL REPORT -------- Dictated By: Jacklyn Weldon Dictated Date: 04/29/2024 12:12 ET Assigned Physician: Jacklyn Weldon Reviewed and Electronically Signed By: Jacklyn Weldon Signed Date: 04/29/2024 12:16 ET Workstation ID: [id number] Transcribed By: Self Edit Transcribed Date: 04/29/2024 12:12 ET us Elly Bai MD IMG BI PROCEDURES Final Resul t from Last 3 Months or Most Recently Relevant to Health Maintenance Insurance [employer] Care Teams [employer] Teacher Relationship Specialty Start Date End Date Elly Bai MD [address] [facility] [address] [place], [place] PCP - General Internal Medicine 03/29/20
--- OUTSIDE RECORDS SUMMARY | 2025-02-16 06:56 | XMS_ITS | Patient Health Record ---
Author Organization [facility] Address [address] [place] [address] Care Team Providers Care [place]ble Mason Name Role Phone Elly Bai Primary Care Provider Myles Hansen Unavailable [phone] Allergies Allergen (clinical drug ingredient) Drug/Non Drug Allergy documented on EMR Reaction Allergy Type Onset Date Status sulfamethoxazole / trimethoprim Bactrim Unknown Drug Allergy Active Reason For Referral No Information Medications Medication SIG (Take, Route, Frequency, Duration) Notes Start Date End Date Status [place] 3 Active Flax Seeds Active Rosuvastatin Calcium 10 MG Oral; Duration: 90 Active Omeprazole 20 MG Oral; Duration: 90 Active Turmeric Active Lisinopril 40 MG Oral; Duration: 90 Active Magnesium Active Multivitamin Active Social History Tobacco [...] Problem Status W/U Status Risk Notes Problem Colon cancer screening (276116142) Colon cancer screening (Z12.11) Active confirmed Problem Diverticular disease of colon (337473302) Diverticulosis of large intestine without perforation or abscess without bleeding (K57.30) Active confirmed Problem Gastroesophageal reflux disease (829384179) Gastroesophageal reflux disease (K21.9) Active confirmed Problem Family History of Cancer of Colon (Situation) (480967902) Family history of colon cancer (Z80.0) Active confirmed Problem Right upper quadrant pain (038088681) RUQ pain (R10.11) Active confirmed Problem Gastroesophageal reflux disease (439232310) Gastroesophageal reflux disease, unspecified whether esophagitis present (K21.9) Active confirmed Plan Of Treatment Pending Test Test Name Order Date Pathology 06/11/2023 Future Test Test Name Order Date UPPER GI ENDOSCOPY 03/22/2023 COLONOSCOPY 03/22/2023 Insurance Providers Payer Name Payer Address Payer Phone Subscriber Number Group Number Insured Name Patient Relationship to Insured Coverage Start Date Coverage End Date [facility] [address] [place] [address] [phone] [id number] SHYAM ARNOLD Self - patient is the insured Medical (General) History Medical History History ICD Code hypertension hypercholesterolemia GERD--she describes an upper endoscopy in approximately 2018 and being told of a hiatal hernia 3 Previous colonoscopies in [place] with removal of polyps, but she reports that they were not even precancerous. Her most recent colonoscopy was in approximately [address] Rubalcava. Denies SC,DM,CVA,Lung disease,renal dise ase Surgical History Surgery Date(Month/Year) Appendectomy age 11 Anal fissure
[2025-02-16 10:38] LABS: MANUAL DIFF FLAG NO
[2025-02-16 10:51] LABS: Hematocrit 40.4 % (37.0-47.0); Hemoglobin 13.1 g/dl (12.0-16.0); Imm Gran Abs Auto 0.01 X10*3/uL (0.00-0.03); Imm Gran Pct Auto 0.2 % (0.0-0.4); Lymphocytes Absolute Auto 2.5 X10*3/uL (1.2-4.9); Mean Corpuscular HGB Conc 32.4 g/dl (31.0-35.0); Mean Corpuscular Hemoglobin 30.9 pg (27.0-33.0); Mean Corpuscular Volume 95.3 fL (80.0-98.0); NRBC Abs Auto 0.000 X10*3/uL (0.0-0.012); NRBC Pct Auto 0.0 /100WBC (0.0-0.2); Platelet Count 340 X10*3/uL (160-400); Red Blood Count 4.24 X10*6/uL (4.20-5.50); White Blood Count 5.6 X10*3/uL (4.8-10.8)
[2025-02-16 11:37] LABS: Alanine Aminotransferase 20 U/L (0-31); Albumin Level 4.3 g/dL (3.5-5.0); Alkaline Phosphatase 62 U/L (39-117); Anion Gap 10 (12-20); Aspartate Amino Transferase 25 U/L (5-31); Blood Urea Nitrogen 19 mg/dL (9-16); Calcium 9.0 mg/dL (8.4-10.2); Carbon Dioxide 29 mmol/L (22-29); Chloride 108 mmol/L (96-108); Cholesterol 188 mg/dL (<200); Estimated Glomerular Filt Rate > 60; HDL Cholesterol 71 mg/dL (>40); Potassium 4.1 mmol/L (3.3-5.1); Sodium 143 mmol/L (135-145); Total Protein 6.8 g/dL (6.5-8.0); Triglycerides 90 mg/dL (<150)
== END 2025-02-16 06:54 | disposition home or self-care (01) ==
LOC: HO.HMGCLDS 06:53
PROVIDERS: PCP Internal Medicine; Visit Provider Internal Medicine
DX: F41.8 Other specified anxiety disorders (principal); E78.00 Pure hypercholesterolemia, unspecified; I10 Essential (primary) hypertension; Z63.4 Disappearance and death of family member
CPT/HCPCS: 36415; 80053; 80061; 85025